=== PATIENT | female | born 1935 | race Two or more races ===

== ENCOUNTER 2018-04-06 12:47 | Outpatient (CLI) | payer OTHER ==
[~2018-04-06] VITALS: Ht 162.6 cm; Wt 80.7 kg
== END 2018-04-06 13:00 | disposition home or self-care (01) ==
LOC: OFIC 805 12:47
DX: H92.02 Otalgia, left ear (principal); H93.12 Tinnitus, left ear; R09.81 Nasal congestion

== ENCOUNTER 2018-05-18 09:43 | Outpatient (CLI) | payer OTHER ==
[~2018-05-18] VITALS: Ht 152.4 cm; Wt 80.7 kg
== END 2018-05-18 10:00 | disposition home or self-care (01) ==
LOC: OFIC 805 09:43
DX: H93.12 Tinnitus, left ear (principal); H90.3 Sensorineural hearing loss, bilateral

== ENCOUNTER 2023-10-25 10:51 | Emergency (ER) | payer OTHER ==
[~2023-10-25] VITALS: Ht 149.9 cm; Wt 68.9 kg
[2023-10-25] MEDS ORDERED: GLIMEPIRIDE4 M1 PO (10:56)
[2023-10-25] MEDS ORDERED: LOSARTAN POTASS50 MG PO (10:57)
[2023-10-25] MEDS ORDERED: SIMVASTATIN80 MG PO (10:57)
[2023-10-25] MEDS ORDERED: BARIUM SULFATE 450 ML ORAL.SUSP PO ONE (12:55)
[2023-10-25 13:22] LABS: HEMATOCRIT 37.7 % (36.0-45.00); HEMOGLOBIN 13.3 g/dL (12.0-15.00); MEAN CELL VOLUME 100.6 fL (80.00-100.00); MEAN CORPUSCULAR HEMOGLOBIN 35.4 pg (27.00-32.0); MEAN CORPUSCULAR HGB CONC 35.2 g/dl (32.0-36.0); PLATELET COUNT 148 K/uL (150-450); RED BLOOD COUNT 3.75 M/uL (4.00-6.00); RED CELL DISTRIBUTION WIDTH 12.6 % (11.5-14.5)
[2023-10-25 13:41] LABS: URINE APPEARANCE Clear; URINE BILIRRUBIN Negative (NEGATIVE); URINE BLOOD Negative; URINE COLOR Yellow; URINE GLUCOSE Negative (NEGATIVE); URINE KETONE Negative (NEGATIVE); URINE LEUKOCYTE Small; URINE NITRATE Negative; URINE PROTEIN Negative (NEGATIVE)
[2023-10-25 13:47] LABS: URINE EPITHELIAL CELLS 15.7 uL (0.0-38.8); URINE RBC 3.2 uL (0.0-20.8)
[2023-10-25 14:12] LABS: ALBUMIN 3.8 gm/dL (3.4-5.0); BILIRUBIN TOTAL 0.7 mg/dL (0.3-1.2); BILIRUBIN,CONJUGATED 0.19 mg/dL (0.0-0.2); BILIRUBIN,UNCONJUGATED 0.51 mg/dL (0.0-0.6); CALCIUM 10.2 mg/dL (8.5-10.1); CREATININE SERUM 1.19 mg/dL (0.55-1.02); GFR 42.71; GLOBULINA 3.7 G/DL (2.4-3.5); POTASSIUM 3.61 mEq/L (3.5-5.1); TOTAL PROTEIN 7.5 gm/dL (6.4-8.2)
[2023-10-25] MEDS ORDERED: PEPCID AC20 MG PO (16:51)
== END 2023-10-25 17:09 | disposition home or self-care (01) ==
LOC: ER 10:51
PROVIDERS: Emergency Medicine
DX: R53.81 Other malaise (principal); R10.9 Unspecified abdominal pain; Z20.822 Contact with and (suspected) exposure to COVID-19
CPT/HCPCS: 36415; 74177; 99284; Q9965